=== PATIENT | male | born 1940 | race Caucasian/White ===

== ENCOUNTER 2018-07-10 04:32 | Emergency (ER) | payer MEDICARE, MEDICAID ==
[~2018-07-10] VITALS: Ht 190.5 cm; Wt 95.7 kg
--- NOTE | 2018-07-10 04:45 | NUR ---
[facility] 878 FR HOME C/C LT FOREHEAD LACERATION S/P TRIP & FALL ON FEET WHILE WALKING IN DARK AT HOME X TODAY, NO LOC, TETANUS UNKNOWN. PT ON BABY ASA. PT IS AAOX4. RR EVEN AND UNLABORED. PT PLACED ON MONITOR AND POX. NO S/S OF ACUTE DISTRESS NOTED. PT SAFETY AND COMFORT MEASURES IN PLACE.
--- NOTE | 2018-07-10 04:59 | NUR ---
PT TO CT
--- NOTE | 2018-07-10 05:09 | NUR ---
PT BACK FROM CT
[2018-07-10] MEDS ORDERED: TDAP [DIPH/PERTUSSIS/TET] 0.5 ML VIAL IM ONE (05:10)
[2018-07-10] MEDS ORDERED: LIDOCAINE 1%-EPI 1:100,000 20 ML VIAL ONE (05:10)
[2018-07-10] MEDS ORDERED: ACETAMINOPHEN 325 MG TABLET ONE (05:10)
[2018-07-10] MEDS: LIDOCAINE 1%-EPI 1:100,000 50 ML VIAL IJ ONE (05:25)
[2018-07-10] MEDS: TDAP [DIPH/PERTUSSIS/TET] 0.5 ML VIAL IM ONE (05:26)
[2018-07-10] MEDS: ACETAMINOPHEN 325 MG TABLET PO ONE (05:26)
--- NOTE | 2018-07-10 05:56 | NUR ---
BEDSIDE SPEAKING TO PT AND PT'S DAUGHTER.
[2018-07-10 05:59] VITALS: BP 139/76
--- NOTE | 2018-07-10 05:59 | NUR ---
Patient discharged to home in stable condition. Written and verbal after care instructions given. Patient verbalizes understanding of instruction.
== END 2018-07-10 06:01 | disposition home or self-care (01) ==
LOC: ER 04:40
DX: S01.81XA Laceration without foreign body of other part of head, initial encounter (principal); E11.9 Type 2 diabetes mellitus without complications; I10 Essential (primary) hypertension; E78.00 Pure hypercholesterolemia, unspecified; W01.0XXA Fall on same level from slipping, tripping and stumbling without subsequent striking against object, initial encounter; Y93.89 Activity, other specified; Y92.89 Other specified places as the place of occurrence of the external cause; Y99.8 Other external cause status
CPT/HCPCS: 12013; 70450; 72125; 90471; 90715; 99284; J3490 ×2

== ENCOUNTER 2024-01-13 10:24 | Inpatient (IN) | payer MEDICARE, OTHER ==
[~2024-01-13] VITALS: Ht 182.9 cm; Wt 90.3 kg
[2024-01-13 12:46] LABS: BASOPHILS % (AUTO) 0.5 % (0.0-2.0); EOSINOPHILS # (AUTO) 0.1 K/uL (0.0-0.7); EOSINOPHILS % (AUTO) 0.6 % (0.0-6.0); HEMATOCRIT 41 % (39-51); HEMOGLOBIN 13.8 g/dL (13.5-17.5); LYMPHOCYTES # (AUTO) 0.6 K/uL (0.8-4.8); LYMPHOCYTES % (AUTO) 6.2 % (20.0-44.0); MEAN CORPUSCULAR HEMOGLOBIN 33 PG (26.0-33.0); MEAN CORPUSCULAR HGB CONC 34 g/dl (31.0-36.0); MEAN CORPUSCULAR VOLUME 98 fL (80-96); MONOCYTES # (AUTO) 0.4 K/uL (0.1-1.30); MONOCYTES % (AUTO) 4.3 % (2.0-12.0); NEUTROPHILS # (AUTO) 8.2 K/uL (1.8-8.9); NEUTROPHILS % (AUTO) 88.4 % (43.0-81.0); PLATELET COUNT (AUTO) 175 K/uL (150-450); RED BLOOD CELL COUNT(AUTO) 4.22 MIL/uL (4.5-6.0); RED CELL DISTRIBUTION WIDTH 13.7 % (11.5-15.0); WHITE BLOOD COUNT (AUTO) 9.3 K/uL (4.3-11.0)
[2024-01-13 13:00] LABS: CALCIUM, SERUM 8.6 mg/dL (8.5-10.1); CARBON DIOXIDE 26 mmol/L (21-32); CHLORIDE 96 mmol/L (98-107); CREATININE 0.6 mg/dL (0.6-1.3); GLUCOSE 114 mg/dL (74-106); POTASSIUM 4.5 mmol/L (3.5-5.1); SODIUM SERUM 131 mmol/L (136-145); UREA NITROGEN, BLOOD 13 mg/dL (7-18)
[2024-01-13] MEDS ORDERED: MAGNESIUM HYDROXIDE 30 ML UDC PO PRN (13:00)
[2024-01-13] MEDS ORDERED: MAG HYDROX/AL HYDROX/SIMETH 30 ML UDC PO PRN (13:00)
[2024-01-13] MEDS ORDERED: ACETAMINOPHEN 325 MG TABLET PO PRN (13:00)
[2024-01-13] MEDS ORDERED: ONDANSETRON HCL/PF 4 MG/2 ML VIAL IVP PRN (13:00)
[2024-01-13] MEDS ORDERED: Z GUARD REMEDY 4 OZ OINT TP PRN (13:00)
[2024-01-13] MEDS ORDERED: DIAZ10TA4 PO (13:32)
[2024-01-13] MEDS ORDERED: AMLO-212 PO (13:32)
[2024-01-13] MEDS ORDERED: METF-440 PO (13:32)
[2024-01-13] MEDS ORDERED: DORZ10DR11 RIGHTEYE (13:32)
[2024-01-13] MEDS ORDERED: CHOL200026 PO (13:32)
[2024-01-13] MEDS ORDERED: OLME20TA23 PO (13:32)
[2024-01-13] MEDS ORDERED: PREG-58 PO (13:32)
[2024-01-13] MEDS: POLYETHYLENE GLYCOL 3350 17 GM POWD.PACK PO PRN (14:53)
[2024-01-13] MEDS ORDERED: LINA145C PO (15:41)
[2024-01-13] MEDS ORDERED: DIAZEPAM 10 MG TABLET PO PRN (17:00)
[2024-01-13] MEDS ORDERED: Medication Not On Formulary EA (Linaclotide (Linzess) 145 MCG) PO PRN (17:00)
[2024-01-13] MEDS: DOCUSATE SODIUM 100 MG CAPSULE PO SCH (17:49)
[2024-01-13] MEDS: PREGABALIN 25 MG CAPSULE PO SCH (17:50)
[2024-01-13] MEDS: TIMOLOL MAL/DORZOLAM HCL OPHTH 10 ML BOTTLE RIGHTEYE SCH (17:51)
[2024-01-13] MEDS: DIAZEPAM 5 MG TABLET PO PRN (19:47)
[2024-01-13 20:00] VITALS: BP 125/85; TEMP 98.5; O2SAT 99
[2024-01-13 23:40] VITALS: BP 125/85; TEMP 98.5; O2SAT 99
[2024-01-14 06:08] VITALS: BP 125/85; TEMP 98.5; O2SAT 99
[2024-01-14 06:26] LABS: BASOPHILS % (AUTO) 0.7 % (0.0-2.0); EOSINOPHILS # (AUTO) 0.1 K/uL (0.0-0.7); EOSINOPHILS % (AUTO) 2.3 % (0.0-6.0); HEMATOCRIT 39 % (39-51); HEMOGLOBIN 12.9 g/dL (13.5-17.5); LYMPHOCYTES # (AUTO) 0.6 K/uL (0.8-4.8); LYMPHOCYTES % (AUTO) 12.6 % (20.0-44.0); MEAN CORPUSCULAR HEMOGLOBIN 32 PG (26.0-33.0); MEAN CORPUSCULAR HGB CONC 33 g/dl (31.0-36.0); MEAN CORPUSCULAR VOLUME 98 fL (80-96); MONOCYTES # (AUTO) 0.7 K/uL (0.1-1.30); MONOCYTES % (AUTO) 14.4 % (2.0-12.0); NEUTROPHILS # (AUTO) 3.6 K/uL (1.8-8.9); PLATELET COUNT (AUTO) 160 K/uL (150-450); RED CELL DISTRIBUTION WIDTH 13.8 % (11.5-15.0); WHITE BLOOD COUNT (AUTO) 5.1 K/uL (4.3-11.0)
[2024-01-14 06:42] LABS: CARBON DIOXIDE 26 mmol/L (21-32); CHLORIDE 100 mmol/L (98-107); CREATININE 0.7 mg/dL (0.6-1.3); GLUCOSE 104 mg/dL (74-106); MAGNESIUM 2.2 mg/dL (1.8-2.4); PHOSPHORUS 3.6 mg/dL (2.5-4.9); POTASSIUM 4.2 mmol/L (3.5-5.1); SODIUM SERUM 136 mmol/L (136-145); UREA NITROGEN, BLOOD 11 mg/dL (7-18)
[2024-01-14 08:00] VITALS: BP 123/77; TEMP 98.6; O2SAT 96
[2024-01-14] MEDS: CHOLECALCIFEROL 1,000 UNIT TABLET (VIT D3) PO SCH (08:05)
[2024-01-14 08:06] VITALS: BP 123/77
[2024-01-14] MEDS: METFORMIN 500 MG TABLET PO SCH (08:06)
[2024-01-14] MEDS: LOSARTAN POTASSIUM 50 MG TABLET PO SCH (08:06)
[2024-01-14] MEDS: AMLODIPINE BESYLATE 5 MG TABLET PO SCH (08:06)
== END 2024-01-14 12:00 | disposition home health service (06) | DRG 92 ==
LOC: ER 10:26 → MED 13:19
PROVIDERS: ADMIT Nurse Practitioner Family; ATTEND Internal Medicine
DX: R26.89 Other abnormalities of gait and mobility (principal); E87.1 Hypo-osmolality and hyponatremia; W18.30XA Fall on same level, unspecified, initial encounter; I10 Essential (primary) hypertension; E11.9 Type 2 diabetes mellitus without complications; D64.9 Anemia, unspecified; Z79.84 Long term (current) use of oral hypoglycemic drugs; R53.1 Weakness; Y93.9 Activity, unspecified; Y92.009 Unspecified place in unspecified non-institutional (private) residence as the place of occurrence of the external cause
CPT/HCPCS: 36415; 73610-TC; 73630-TC; 80048-TC; 83735-TC; 84100-TC; 85025-TC; 97110-TC; 97116-TC; 97530-TC; G0378